=== PATIENT | male | born 1955 | race Caucasian/White ===

== ENCOUNTER 2018-05-10 13:04 | Outpatient (CLI) | payer OTHER, SELFPAY | END 2018-05-10 13:24 | PROVIDERS: PCP Internal Medicine; Visit Provider Orthopaedic Surgery | DX: G56.01 Carpal tunnel syndrome, right upper limb (principal); Z01.818 Encounter for other preprocedural examination ==

== ENCOUNTER 2018-05-18 11:14 | Day surgery (SDC) | payer OTHER, SELFPAY ==
[2018-05-10 13:27] VITALS: BP 138/85; PULSE 66; RESP 17; TEMP 36.7; O2SAT 93
--- NOTE | 2018-05-10 17:09 | HPE_ITS ---
Date of service: 05/10/18 Time of Service: 14:39 Assessment and Plan (1) Carpal tunnel syndrome on both sides: Current visit: Yes Status: Acute ECTR of right wrist anatomy permitting to be followed approximately 2 weeks later by left wrist ECTR. The anatomy operative procedure typical postop course and possible complications are reviewed in detail with Chuck during his preop visit all questions are answered. History of Present Illness Chief Complaint: hand numbness Narrative: Chuck relates a long history numbering at least 5-6 years of right greater than left numbness in the median nerve distribution affecting his thumb , index, long and half of his ring finger definitely sparing his little finger. 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 He has noted decreased dexterity having trouble buttoning his work shirts to the point where he has to have his help button the cuff . He is right-hand dominant. He has a daughter who is a physical therapist and she helped initially make the diagnosis. Pertinent Surgical Information Denies previous medical history of: stroke, TIA, VT, use of sublingual nitroglycerin, GERD, seizures, diabetes, thyroid disease, sleep apnea, liver disease, hepatitis, hematologic disorders Denies previous complications from surgery or anesthesic agents with respect to high fever, prolonged vomiting and difficulty waking up Review of Systems Review of Systems All systems reviewed & are unremarkable except as noted in HPI and below Constitutional Denies fever(s) and Reports headache(s) ENT Reports headache(s) and Reports sore throat Cardiovascular Denies chest pain, Denies chest pain with activity, Denies palpitations and Denies dyspnea on exertion Respiratory Denies dyspnea on exertion and Denies wheezing Gastrointestinal Denies abdominal pain, Denies melena, Denies hematochezia, Denies nausea and Denies vomiting Genitourinary Denies dysuria and Denies urinary frequency Comments: has chronic microscopic hematuria Musculoskeletal Reports as per HPI Neurologic Reports headache(s) Psychiatric Denies anxiety and Denies depression Endocrine Denies palpitations Comments: Denies any unplanned weight changes Allergic/Immunologic Denies wheezing PFSH Medical History Hypertension (Chronic) Social History Smoking/Tobacco Use Status: Former Tobacco Use alcohol intake: never Surgical History History of inguinal hernia repair (Resolved) Hx of tonsillectomy (Resolved) Hx of total hip arthroplasty (Inactive) Meds Home Medications Medication Instructions Recorded Confirmed Type ibuprofen [Advil] 800 mg PO PRN PRN 03/10/16 05/10/18 History aspirin [Aspir 81] 81 mg PO DAILY tab-cap 05/04/17 05/10/18 History losartan 100 mg tablet 160 mg PO DAILY 05/04/18 05/10/18 History Allergies Allergy/AdvReac Type Severity Reaction Status Date / Time No Known Drug Allergies Allergy Verified 05/10/18 13:25 Exam Const General: cooperative HENMT Throat: posterior oropharynx normal Eyes General: appearance normal, both eyes and all related structures Conjunctivae: conjunctivae normal Sclera: sclerae normal Neck Neck: no JVD Carotids: normal carotid upstroke and no bruits Resp Effort & Inspection: normal respiratory effort and able to speak in complete sentences Auscultation: clear to auscultation bilaterally, no rales, no rhonchi and no wheezes Cardio Rate: regular rate Heart Sounds: S1 normal, S2 normal and no murmurs Bruits: no abdominal aortic bruits Pulses: normal peripheral pulses Other: No pulsatile mass noted with palpation over the abdominal aorta GI Palpation: soft and no hepatosplenomegaly Auscultation: normal bowel sounds General: No CVA tenderness Extrem General: no pedal edema Other: Bilateral hands show no evidence of any thenar atrophy. He has numbness to light touch sensation in the median nerve innervated digits on both his hands. 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 Tinel's testing is positive bilaterally experiencing dysesthesia in his long finger. Median nerve compression testing also cause dysesthesia in his index and long finger bilaterally. Phalen's testing is especially positive on the left side. Results Last Vital Signs Temp 36.7 C 05/10/18 13:27 Pulse 66 05/10/18 13:27 Resp 17 05/10/18 13:27 BP 138/85 05/10/18 13:27 Pulse Ox 93 L 05/10/18 13:27
[2018-05-18 11:40] VITALS: BP 123/79; PULSE 70; RESP 18; TEMP 36.7; O2SAT 94
[2018-05-18] MEDS: Normal Saline Flush 10 ML SYR IV (12:13)
[2018-05-18] MEDS: Lactated Ringers 1,000 ML 80 ML IV (12:13)
--- NOTE | 2018-05-18 12:57 | W.PM.DSUDISC ---
Discharge Plan Disposition Patient Disposition: HOME Condition: Good Discharge Details Reason For Visit: (R) CTS Attending Provider: Bhavesh Roland Primary Care Provider: Megha Puckett Home Meds and New Rx's Prescriptions: New hydrocodone-acetaminophen 5-325 mg tablet 1 tab PO Q6H PRN (Reason: pain) Qty: 7 RF: 0 Continue losartan 100 mg tablet 160 mg PO DAILY RF: 0 aspirin [Aspir-81] 81 MG tablet,delayed release (DR/EC) 81 mg PO DAILY RF: 0 ibuprofen [Advil Liqui-Gel] 200 MG capsule 800 mg PO PRN PRNRF: 0 Discharge Instructions Additional Instructions: Elevate R hand above heart level as much as possible overnite. Wiggle fingers 10 times/hour when awake to prevent swelling. Your fingers R hand may stay numb for 24 hours due to nerve block I put in to decrease post-op pain. Remove splint AND dressings in 48 hours and begin to move R wrist. May shower or bathe and get incision wet after you remove the dressings. Leave incision uncovered when it is dry and sealed. Use R hand as much as your discomfort allows. Follow up in 's office in 2 weeks. Referrals: Bhavesh Roland MD [ [facility] STAFF PHYSICIAN] - (f/u in 2 weeks.) Equipment/Supplies: Splint Activity:: Activity as Tolerated Remove Dressings/Wound Care:: 48 hours Shower/Bathe:: 48 hours Diet:: As Tolerated Discharge Orders Discharge Orders: Discharge Order (Routine); Ordered 05/18/18 Ordered By: Bhavesh Roland DS: Diagnosis Discharge Diagnosis (1) Carpal tunnel syndrome on both sides: Start date: 05/18/18 Start time: 12:58 Status: Acute
[2018-05-18 13:27] VITALS: BP 120/75; PULSE 57; RESP 20; TEMP 36.5; O2SAT 93
--- NOTE | 2018-05-18 20:39 | ROE_ITS ---
DATE OF PROCEDURE: May 18, 2018 PREOPERATIVE DIAGNOSIS: Carpal tunnel syndrome, right. POSTOPERATIVE DIAGNOSIS: Carpal tunnel syndrome, right. PROCEDURE: Endoscopic carpal tunnel release, right. SURGEON: Bhavesh Roland M.D. ANESTHESIA: IV regional. INDICATIONS: This is a 62-year-old white male with a longstanding history of carpal tunnel syndrome bilaterally. His right is more affected. He also is a right dominant individual. Because of failur e of conservative treatment to control his symptoms surgery was recommended. The patient wished to u nder the endoscopic technique of carpal tunnel release. The risks and complications of the procedure were explained to the patient in detail preoperatively. PROCEDURE: The patient was taken to the Operating Room on 05/18/18. He was placed supine on the ope rating table and an IV regional anesthetic was administered to the right upper extremity. Once good anesthesia was obtained, the right hand, wrist, and forearm were prepped and draped free in the usual sterile fashion. A transverse incision was made in line with the proximal flexion crease of the wri st. The incision began at the flexor carpi radialis tendon to the flexor carpi ulnaris tendon. The incision was carried down to the fascia and the subcutaneous veins were cauterized. There was a palm manuel longus tendon that was retracted radially and then a distally-based fascial flap was created to gain access to this carpal tunnel. A synovial reflector was then used to free up any soft tissue att achments to the undersurface of the volar carpal ligament. The Ron endoscope blade device was then inserted into the carpal canal. Care was taken to position the endoscope against the hook of the ham ate. The endoscope was advanced until the distal edge of the volar carpal ligament was clearly visua lized. At this point the trigger was depressed, elevating the blade, and then the elevated blade was brought out proximally through the incision, transecting the volar carpal ligament. Littler scissor s were then used to complete a subcutaneous fasciotomy proximal from the incision for a distance of a bout 2 inches. The wound was irrigated with Betadine and saline solution. The wound margins were infiltrated with 0 .5% Marcaine with epinephrine solution, and a median nerve block was performed with 0.5% Marcaine wit h epinephrine solution. The skin edges were approximated with horizontal mattress sutures of #4-0 ny yuli suture material. The wound was dressed with Xeroform gauze, sterile gauze 4x4s, wrapped with a K erlix bandage, and then wrapped with a 3-inch Flavio bandage. He was placed in a commercial cock-up wri st splint. The patient's IV regional anesthesia was reversed without complications. Blood loss was minimal. He was discharged to the Recovery Room in good condition. The patient was discharged home from the Day Surgery Unit when fully recovered from his IV regional a nesthesia. He was given instructions to try to elevate his right hand above heart level as much as p ossible overnight tonight. He is encouraged to wiggle his fingers 10 times an hour while awake. He is advised that the fingers in his right hand may be numb for 24 hours due to the nerve block I put i n to decrease postoperative pain. He may remove his dressings and splint and begin to move his wrist after 48 hours. He may shower or bathe and get his incision wet after 48 hours. He is to leave the incision uncovered when it is dry and sealed. I encouraged him to use his right hand as much as dis comfort allows. He is given a prescription for pain of hydrocodone/APAP 5 mg/325 mg, 1 tablet every 6 hours as needed for pain not relieved by Tylenol or ibuprofen. He will follow up in Dr. Roland's o ffice in two weeks.
== END 2018-05-18 13:54 | disposition home or self-care (01) ==
PROVIDERS: PCP Internal Medicine; Visit Provider Orthopaedic Surgery
PROC: 01N54ZZ Release Median Nerve, Percutaneous Endoscopic Approach (ICD-10-PCS; CPT 29848; principal; 2018-05-18 13:00)
DX: G56.01 Carpal tunnel syndrome, right upper limb (principal)
CPT/HCPCS: 29848; J2250; L3908

== ENCOUNTER 2018-06-22 11:13 | Day surgery (SDC) | payer OTHER, SELFPAY ==
[2018-06-22 11:42] VITALS: BP 136/87; PULSE 67; RESP 16; TEMP 36.7; O2SAT 96
[2018-06-22] MEDS: Lactated Ringers 1,000 ML 80 ML IV (12:10)
--- NOTE | 2018-06-22 13:36 | W.PM.DSUDISC ---
Discharge Plan Disposition Patient Disposition: HOME Condition: Good Discharge Details Reason For Visit: L ECTR Attending Provider: Bhavesh Roland Primary Care Provider: Megha Puckett Home Meds and New Rx's Prescriptions: New hydrocodone-acetaminophen 5-325 mg tablet 1 tab PO Q6H PRN (Reason: pain) Qty: 7 RF: 0 Continued losartan 100 mg tablet 160 mg PO DAILY RF: 0 aspirin [Aspir-81] 81 MG tablet,delayed release (DR/EC) 81 mg PO DAILY RF: 0 ibuprofen [Advil Liqui-Gel] 200 MG capsule 800 mg PO PRN PRNRF: 0 Discharge Instructions Additional Instructions: Elevate L hand above heart level as much as possible overnite tonite. Wiggle fingers L hand 10 times/hour when awake to decrease pain and swelling. Remove dressings AND splint after 48 hours and begin to move L wrist. May use L hand as much as your discomfort allows. After you remove dressings, may shower or bathe and get incision wet. Leave incision uncovered when it is dry and sealed. Take hydrocodone as prescribed only for pain not relieved by ibuprofen. Follow up in 's office in 2 weeks. Your fingers L hand may stay numb for 24 hours due to nerve block I put in to decrease post-op pain. Referrals: Bhavesh Roland MD [ [facility] STAFF PHYSICIAN] - (f/u in 2 weeks.) Equipment/Supplies: Splint Activity:: Activity as Tolerated Remove Dressings/Wound Care:: 48 hours Shower/Bathe:: 48 hours Diet:: As Tolerated Discharge Orders Discharge Orders: Discharge Order (Routine); Ordered 06/22/18 Ordered By: Bhavesh Roland DS: Diagnosis Discharge Diagnosis (1) Carpal tunnel syndrome on both sides: Status: Acute
[2018-06-22 14:08] VITALS: BP 148/80; PULSE 64; RESP 16; TEMP 36.5; O2SAT 97
--- NOTE | 2018-06-22 15:57 | ROE_ITS ---
DATE OF PROCEDURE: June 22, 2018 PREOPERATIVE DIAGNOSIS: Carpal tunnel syndrome, left. POSTOPERATIVE DIAGNOSIS: Carpal tunnel syndrome, left. PROCEDURE: Endoscopic carpal tunnel release, left. SURGEON: Bhavesh Roland M.D. ANESTHESIA: IV regional, Dario Herman CRNA INDICATIONS: This is a 62-year-old white male with bilateral carpal tunnel syndrome of many years' d uration. He recently underwent a successful endoscopic carpal tunnel release on the right a month ag o. He is pleased with his result and wishes to undergo the same procedure on the left to alleviate p ain and numbness in the median nerve distribution of this left hand. The risks and complications of the procedure have been explained to the patient in detail preoperatively. PROCEDURE: The patient was taken to the Operating Room on 06/22/18 and placed supine on the operatin g table. An IV regional anesthetic was administered to the left upper extremity. Once good anesthes ia was obtained, the left hand, wrist, and forearm were prepped and draped free in the usual sterile fashion. An incision was made in line with the proximal flexion crease, beginning at the flexor carpi radialis tendon and extending to the flexor carpi ulnaris tendon. The incision was carried down to the fasci a. Subcutaneous veins were cauterized. A distally-based fascial flap was created to gain access to the carpal canal. A synovial reflector was then used to free up any soft tissue attachments to the u ndersurface of the volar carpal ligament. A series of obturators were then inserted to make room for the endoscope. The Ron endoscope blade device was then inserted in the carpal canal and care was taken to position the endoscope against the hook of the hamate. The endoscope was advanced until the distal edge of th e volar carpal ligament was clearly seen. Once it was seen, the trigger was depressed, elevating the blade, and the blade was kept elevated as it was withdrawn out through the skin incision, transectin g the volar carpal ligament. A limited subcutaneous fasciotomy was then performed proximal to the incision using Littler scissors. A median nerve block was performed with 0.5% Marcaine with epinephrine solution. The wound margins w ere infiltrated with 0.5% Marcaine with epinephrine solution. The wound was irrigated with saline so lution and then the skin edges were approximated with two horizontal mattress sutures of #4-0 nylon s uture material. The wound was dressed with Xeroform gauze, sterile gauze 4x4s, and wrapped with a Ke rlix bandage, followed by wrapping with an Flavio bandage. A commercial cock-up wrist splint was then a pplied. The patient's IV regional anesthesia was reversed without complications. He was discharged to the Day Surgery Unit in good condition. The patient was discharged home from the Day Surgery Unit when fully recovered from his IV regional a nesthesia. He was given instructions to elevate his left hand above heart level as much as possible overnight tonight. He is encouraged to wiggle his fingers 10 times an hour while awake to prevent sw elling and pain. He is to remove his splint and dressings and begin to move his left wrist in [address] After he removes his dressings, he may shower or bathe and get his incision wet. He is to leave the incision uncovered when it is dry and sealed. He will take hydrocodone with APAP 5 mg/325 mg, 1 tablet p.o. q.6h. p.r.n. for pain that is not relieved by ibuprofen. He may use his left hand as mu ch as discomfort allows. He will follow up in Dr. Roland's office in two weeks.
== END 2018-06-22 14:26 | disposition home or self-care (01) ==
PROVIDERS: PCP Internal Medicine; Visit Provider Orthopaedic Surgery
PROC: 01N54ZZ Release Median Nerve, Percutaneous Endoscopic Approach (ICD-10-PCS; CPT 29848; principal; 2018-06-22 13:00)
DX: G56.02 Carpal tunnel syndrome, left upper limb (principal)
CPT/HCPCS: 29848; J0690; J2250; L3908

== ENCOUNTER 2019-05-15 07:26 | Day surgery (SDC) | payer OTHER, SELFPAY ==
--- NOTE | 2019-05-15 07:00 | W.COLOREPORT ---
Date of service: 05/15/19 Time of Service: : Colonoscopy Report Date of procedure: 05/15/19 Pre-op diagnosis general: Colon Cancer Screening and Family history Post-op diagnosis procedure note: other (Diverticulosis and rectal polyp) Procedure: Colonoscopy with polypectomy by cold forceps Surgeon: Stephanie Farris Anesthesia proc note operative: other (General/ ASA 2/Alexus Roman, GENNARO) Estimated blood loss (mL): 3 Pathology: other (Rectal polyp) Complications: None Disposition: same day Indications: Mr. Bhatt is a pleasant 63 year old male seen in the office for a screening colonoscopy. His last Colonoscopy in 2008 was normal. he does have a family hitsory of colon cnacer in his mother who was 60 years old when she was diagnosed. Risks, benefits and complications have been reviewed. Complications include but are not limited to bleeding, pain, perforation, missed small lesion/polyp, sore throat, aspiration and adverse reaction to the medications. Questions were entertained and answered to their satisfaction and they wished to proceed. No guarantees were given or implied. Prep: Miralax/Dulcolax Procedure Start Time: : Procedure End Time: :52 Retraction Time: 23 minutes Findings: One sessile polyp at 15 cm about 10 mm in size Procedure Description: After informed consent was obtained the patient was taken to the procedure room and placed in a left decubitous position. Monitors were applied and a time out was done. The patients name, date of , procedure, allergies to medications and metal in their body was reviewed. The patient was then sedated. Once sedated and comfortable a rectal exam was done. External exam was normal. Internal exam revealed a normal sphincter tone and no palpable masses. I was unable to feel the prostate. The scope was then introduced and retro-flexed. No internal hemorrhoids were identified. The scope was then advanced to the cecum without difficulty. The TI and appendiceal orifice were identified. The prep was adequate. The scope was then slowly retracted over 23 minutes back into the rectum. Polyps were removed with cold forceps in the rectum at 15 cm. There was mild sigmoid diverticulosis noted as well. The scope was removed and the patient was woken up and taken back to Same day surgery in stable condition. The patient tolerated the procedure well and there were no immediate complications. Follow up: The patient should follow up in 5 years unless they develop changes in bowel habits or other new gastrointestinal complaints.
--- NOTE | 2019-05-15 07:00 | W.PM.DSUDISC ---
Discharge Plan Disposition Patient Disposition: HOME Condition: Good Discharge Details Reason For Visit: Colon Cancer Screening Attending Provider: Stephanie Farris Primary Care Provider: Megha Puckett Home Meds and New Rx's Prescriptions: Continued losartan 100 mg tablet 160 mg PO DAILY RF: 0 aspirin [Aspir-81] 81 MG tablet,delayed release (DR/EC) 81 mg PO DAILY RF: 0 ibuprofen [Advil Liqui-Gel] 200 MG capsule 800 mg PO PRN PRNRF: 0 Discontinued polyethylene glycol 3350 17 gram/dose powder 238 g PO ONCE Qty: 238 RF: 0 bisacodyl [Dulcolax (bisacodyl)] 5 mg tablet,delayed release (DR/EC) 5 mg PO ONCE Qty: 4 RF: 0 Discharge Instructions Instructions: Colonoscopy (DC), Colorectal Polyps (DC), Diverticulosis (DC) Additional Instructions: Findings: Mild Diverticulosis Rectal polyp Follow up: 3-5 years Please call if you develop: fevers >101.5 Nausea or Vomiting Abdominal pain that is not transient DAY SURGERY UNIT POST ENDOSCOPY INSTRUCTIONS 1. Because there will be medication in your system for the next 24 hours, you may feel a little sleepy. Your coordination will be affected. Therefore: a. Do not drive or operate dangerous equipment for 24 hours. b. Do not drink alcohol beverages for 24 hours (not even beer). c. Plan to go home and rest for the day. 2. Generally there are no restrictions on your activity after a day or so has gone by, but you may feel a bit fatigued for a few days. 3 After you arrive home you may have a light meal and return to a normal diet as you can tolerate it without feeling sick to your stomach. 4. After surgery, you may feel pain or discomfort. This should be only transient, but if it persists please contact your doctor. 5. If there are any questions regarding the findings of your procedure, please feel free to contact your doctor. 6. If you are unable to contact your doctor with a problem, contact the hospital at [phone]. 7. Continue all your regular medications unless directed otherwise. I understand the above instructions and have no questions. Signature of Patient or Responsible Adult Escort Date/Time Name of Responsible Adult Escort Signature of Nurse Date/Time Activity:: Activity as Tolerated Diet:: High Fiber Diet Discharge Orders Discharge Orders: Discharge Order (Routine); Ordered 05/15/19 Ordered By: Stephanie Farris DS: Diagnosis Discharge Diagnosis (1) History of colonoscopy: Status: Chronic (2) Diverticulosis: Status: Acute
[2019-05-15 07:43] VITALS: BP 129/75; PULSE 56; RESP 18; TEMP 36.3; O2SAT 96
[2019-05-15] MEDS: Lactated Ringers 1,000 ML 80 ML IV (08:05)
--- NOTE | 2019-05-15 08:30 | BOWEL_PTH ---
PATIENT: Chuck Bhatt LOC: [facility] U#:[id number] AGE/SX: 63/M ROOM: RE05/15/[address]: Stephanie Farris MD : 1955 BED: DIS: 05/15/2019 SPEC #: [id number] RECD: 05/15/19 12:33 STATUS: MASHA REQ #: [id number] MARIELA: 05/15/19 08:[address]: Stephanie Farris DEPT: Surgical Specimen RECD BY: Faustina Catherine ENTERED: 05/15/19 12:33 SP TYPE: Bowel OTHR DR: Megha Puckett Tissues: 1 - BIOPSY BOWEL Procedures: GROSS AND MICRO LEVEL 4 Comments: [id number]
[2019-05-15 09:35] VITALS: BP 102/64; PULSE 54; RESP 18; TEMP 36.1; O2SAT 94
== END 2019-05-15 09:55 | disposition home or self-care (01) ==
PROVIDERS: PCP Internal Medicine; Visit Provider Surgery
PROC: 0DJD8ZZ Inspection of Lower Intestinal Tract, Via Natural or Artificial Opening Endoscopic (ICD-10-PCS; CPT 45378; principal; 2019-05-15 08:45)
DX: Z12.11 Encounter for screening for malignant neoplasm of colon (principal); Z80.0 Family history of malignant neoplasm of digestive organs; D12.8 Benign neoplasm of rectum; I10 Essential (primary) hypertension
CPT/HCPCS: 45380; 88305

== ENCOUNTER 2021-02-06 11:04 | Outpatient (CLI) | payer OTHER, SELFPAY ==
--- NOTE | 2021-02-06 10:00 | DI.RAD_ITS ---
Exam(s) XR HIP RT COMPLETE AP PELVIS EXAM: XR HIP RT COMPLETE AP PELVIS CLINICAL HISTORY: RIGHT HIP PAIN. TECHNIQUE: 2D digital imaging was performed. FINDINGS: Left hip prosthesis appears stable. With respect of the right hip, there has been progression of degenerative change with joint space tyrel rowing in superior aspect of the joint and small marginal osteophyte at the femoral head level. IMPRESSION: DATA REPOSITORY: RADIATION DOSE DELIVERED:
== END 2021-02-06 11:05 | disposition home or self-care (01) ==
LOC: DIORS 11:04
PROVIDERS: PCP Internal Medicine; Referring Provider Internal Medicine; Visit Provider Student in an Organized Health Care Education/Training Program
DX: M16.11 Unilateral primary osteoarthritis, right hip (principal); Z96.642 Presence of left artificial hip joint
CPT/HCPCS: 73502

== ENCOUNTER 2021-04-07 10:29 | Outpatient (CLI) | payer OTHER, SELFPAY ==
--- NOTE | 2021-04-07 09:45 | DI.RAD_ITS ---
Exam(s) XR PELVIS AP EXAM: XR PELVIS AP INDICATION: ESTEFANI planning. COMPARISON: CR XR HIP RT COMPLETE AP PELVIS from 02/06/2021 TECHNIQUE: 2D digital imaging was performed. FINDINGS: There has been no change in the left total hip prosthesis. There are stable advanced degenerative ch anges of the right hip with joint space narrowing greatest superiorly. There is some flattening of t he femoral head as well as periarticular spurring. DATA REPOSITORY: RADIATION DOSE DELIVERED:
== END 2021-04-07 10:30 | disposition home or self-care (01) ==
LOC: DIORS 10:29
PROVIDERS: PCP Internal Medicine; Referring Provider Internal Medicine; Visit Provider Physician Assistant
DX: M25.551 Pain in right hip (principal); M16.11 Unilateral primary osteoarthritis, right hip; Z96.642 Presence of left artificial hip joint
CPT/HCPCS: 72170

== ENCOUNTER 2021-04-14 01:54 | Outpatient (CLI) | payer OTHER, SELFPAY ==
[2021-04-14 09:02] LABS: HCT 42.5 % (40.0-50.0); HGB 13.9 g/dL (13.5-17.5); MCH 30.4 pg (27.0-33.0); MCHC 32.7 % (32.0-36.0); MPV 10.9 fL (8.0-11.0); Platelet Count 184 10^3/uL (130-400); RBC 4.57 10^6/uL (4.36-5.78); RDW 13.1 % (11.8-14.1); RDW-SD 44.4 fL; WBC 5.64 10^3/uL (4.4-10.8)
[2021-04-14 10:01] LABS: Anion Gap 9.8 mmol/L (3-11); BUN 18 mg/dL (7-18); CO2 28.2 mmol/L (21.0-32.0); CREATININE 1.1 mg/dL (0.70-1.30); Calcium 8.9 mg/dL (8.5-10.1); Chloride 105 mmol/L (98-107); Glucose 96 mg/dL (74-106); Potassium 3.9 mmol/L (3.5-5.1); Sodium 143 mmol/L (136-145)
== END 2021-04-14 01:55 | disposition home or self-care (01) ==
LOC: LBO 01:54
PROVIDERS: PCP Internal Medicine; Visit Provider Student in an Organized Health Care Education/Training Program
DX: M25.551 Pain in right hip (principal); M16.11 Unilateral primary osteoarthritis, right hip; Z01.818 Encounter for other preprocedural examination; Z01.812 Encounter for preprocedural laboratory examination
CPT/HCPCS: 36415; 80048; 85027; 86850; 86900; 86901

== ENCOUNTER 2021-04-14 01:55 | Outpatient (CLI) | payer OTHER, SELFPAY ==
[2021-04-14 11:26] LABS: Source Nasal/Nares
[2021-04-14 18:07] LABS: COVID-19 PCR Negative (Negative)
== END 2021-04-14 01:56 | disposition home or self-care (01) ==
LOC: LBO 01:55
PROVIDERS: PCP Internal Medicine; Visit Provider Student in an Organized Health Care Education/Training Program
DX: Z20.822 Contact with and (suspected) exposure to COVID-19 (principal); Z01.818 Encounter for other preprocedural examination
CPT/HCPCS: 87635

== ENCOUNTER 2021-04-15 08:46 | Day surgery (SDC) | payer OTHER, SELFPAY ==
--- NOTE | 2021-04-15 07:43 | W.PM.DS.N ---
Documented by User: Megha Do 04/15/21 10:01 DS: Diagnosis Discharge Diagnosis (1) Degenerative joint disease of right hip: Status: Acute Discharge Plan Disposition Patient Disposition: HOME Condition: Good Discharge Details Reason For Visit: Right hip DJD Attending Provider: Andrea Plummer Primary Care Provider: Megha Puckett Home Meds and New Rx's Prescriptions: New celecoxib [Celebrex] 200 mg capsule 200 mg PO BID Qty: 30 RF: 0 aspirin 81 mg tablet,delayed release (DR/EC) 81 mg PO BID 30 Days Qty: 60 RF: 0 acetaminophen 500 mg tablet 500 mg PO Q6H PRN (Reason: pain) Qty: 60 RF: 2 pantoprazole 40 mg tablet,delayed release (DR/EC) 40 mg PO DAILY 30 Days Qty: 30 RF: 0 oxycodone 5 mg tablet 5 mg PO Q6H PRN (Reason: severe post-operative pain) Qty: 12 RF: 0 docusate sodium [Colace] 100 mg capsule 100 mg PO BID Qty: 30 RF: 0 Continued losartan 100 mg tablet 160 mg PO DAILY RF: 0 Discontinued ibuprofen [Advil Liqui-Gel] 200 MG capsule 800 mg PO PRN PRNRF: 0 No Action ibuprofen 200 mg Capsule 800 mg PO Q6H PRNRF: 0 Discharge Instructions Additional Instructions: Total Hip Discharge Instructions Activity: The most important activity is to walk. You should try to take short walks a few times a day. You have no restrictions on movement or positioning, but do not try to force what you do. You will find some stiffness and weakness with hip flexion (lifting your knee). Do not try to strengthen this too early, continue to practice walking and stairs and this will come. - Outpatient physical therapy can be helpful to help return you to a normal gait and improve your flexibility and strength. This can start around 2 weeks. For some patients, it?s not necessary. Usually this is determined at the time of discharge or at the first post-operative visit. - You should wear the DENZEL hose on both legs for 2 weeks. Dressing: Keep the surgical dressing in place for at least one week. After the first week it may be removed and replace with light gauze and tape or nothing. It may get wet after 3 days but avoid soaking the dressing. If it gets wet, just lightly pat dry. It is important to always keep some gauze between skin folds, especially when you are sitting. Spend some time with the wound exposed when you are lying flat as the incision does wrinkle onto itself. Medications: - You should take Tylenol and an anti-inflammatory Celebrex as your primary pain control medications. If the Celebrex is too expensive or not covered, please call the office for another alternative (Advil/Ibuprofen or Naproxen/Aleve). - You have been prescribed a stronger pain medication Oxycodone for breakthrough pain, take as needed as prescribed. - You have also been prescribed a stomach acid reduction agent Pantoprozole to help reduce stomach acid and reflux. - You will be taking Aspirin 81mg twice a day for DVT prevention unless instructed otherwise. - If you have constipation you should take Colace (which has been prescribed) or Miralax (which you may purchase [id number]). It takes most people 3-4 days to have a bowel movement. Follow-up: 2 weeks If you have any acute concerns or questions, please do not hesitate to contact the office at [phone]. You may contact Dr. Plummer with any questions after hours through the hospital at [phone] or on his cell phone at [phone]. Stand Alone Forms: Anesthesia Discharge Inst., Anes.Nerve Block Instructions Referrals: Andrea Plummer MD [ [facility] STAFF PHYSICIAN] - Equipment/Supplies: Walker Activity:: Activity as Tolerated Remove Dressings/Wound Care:: Do Not Remove Shower/Bathe:: Cover Diet:: As Tolerated Discharge Orders Discharge Orders: Discharge Order (Routine); Ordered 04/15/21 Ordered By: Andrea Plummer DS: Data Vitals/I&O Vitals and I&O: Intake & Output 04/14/21 04/14/21 04/15/21 11:59 23:59 11:59 Weight 123.377 kg REPLACED BY [facility] Medical History Acid reflux Colorectal polyps Degenerative joint disease of right hip Diverticulosis Hypertension Surgical History History of carpal tunnel release bilat History of colonoscopy (~11/11/19) 2009-normal History of inguinal hernia repair Hx of tonsillectomy Hx of total hip arthroplasty Left - posterior approach Dr. Roland DOS: 03/16/2016 Family History Father , in mid-sixties of NSAID induced GI bleed. Alcohol abuse Hypertension Coronary artery disease Mother , unspecified cancer Diabetes Colon cancer RHA (rheumatoid arthritis) Social History Smoking/Tobacco Use Status: Former Tobacco Use Quit Date: 05/05/85 Smoking risk assessment performed?: Yes Alcohol Intake: never Drug use: Never Substance use type: does not use Do you feel safe at home: Yes Do you feel safe in your relationship?: Yes Documented by User: Andrea Plummer MD 04/15/21 16:06 Date of service: 04/15/21 Time of Service: 16:06 Discharge Plan Disposition Patient Disposition: HOME Condition: Good Discharge Details Reason For Visit: Right hip DJD Attending Provider: Andrea Plummer Primary Care Provider: Megha Puckett Home Meds and New Rx's Prescriptions: New celecoxib [Celebrex] 200 mg capsule 200 mg PO BID Qty: 30 RF: 0 aspirin 81 mg tablet,delayed release (DR/EC) 81 mg PO BID 30 Days Qty: 60 RF: 0 acetaminophen 500 mg tablet 500 mg PO Q6H PRN (Reason: pain) Qty: 60 RF: 2 pantoprazole 40 mg tablet,delayed release (DR/EC) 40 mg PO DAILY 30 Days Qty: 30 RF: 0 oxycodone 5 mg tablet 5 mg PO Q6H PRN (Reason: severe post-operative pain) Qty: 12 RF: 0 docusate sodium [Colace] 100 mg capsule 100 mg PO BID Qty: 30 RF: 0 Continued losartan 100 mg tablet 160 mg PO DAILY RF: 0 Discontinued ibuprofen [Advil Liqui-Gel] 200 MG capsule 800 mg PO PRN PRNRF: 0 No Action ibuprofen 200 mg Capsule 800 mg PO Q6H PRNRF: 0 Discharge Instructions Additional Instructions: Total Hip Discharge Instructions Activity: The most important activity is to walk. You should try to take short walks a few times a day. You have no restrictions on movement or positioning, but do not try to force what you do. You will find some stiffness and weakness with hip flexion (lifting your knee). Do not try to strengthen this too early, continue to practice walking and stairs and this will come. - Outpatient physical therapy can be helpful to help return you to a normal gait and improve your flexibility and strength. This can start around 2 weeks. For some patients, it?s not necessary. Usually this is determined at the time of discharge or at the first post-operative visit. - You should wear the DENZEL hose on both legs for 2 weeks. Dressing: Keep the surgical dressing in place for at least one week. After the first week it may be removed and replace with light gauze and tape or nothing. It may get wet after 3 days but avoid soaking the dressing. If it gets wet, just lightly pat dry. It is important to always keep some gauze between skin folds, especially when you are sitting. Spend some time with the wound exposed when you are lying flat as the incision does wrinkle onto itself. Medications: - You should take Tylenol and an anti-inflammatory Celebrex as your primary pain control medications. If the Celebrex is too expensive or not covered, please call the office for another alternative (Advil/Ibuprofen or Naproxen/Aleve). - You have been prescribed a stronger pain medication Oxycodone for breakthrough pain, take as needed as prescribed. - You have also been prescribed a stomach acid reduction agent Pantoprozole to help reduce stomach acid and reflux. - You will be taking Aspirin 81mg twice a day for DVT prevention unless instructed otherwise. - If you have constipation you should take Colace (which has been prescribed) or Miralax (which you may purchase [id number]). It takes most people 3-4 days to have a bowel movement. Follow-up: 2 weeks If you have any acute concerns or questions, please do not hesitate to contact the office at [phone]. You may contact Dr. Plummer with any questions after hours through the hospital at [phone] or on his cell phone at [phone]. Stand Alone Forms: Anesthesia Discharge Inst., Anes.Nerve Block Instructions Referrals: Andrea Plummer MD [ [facility] STAFF PHYSICIAN] - Equipment/Supplies: Walker Activity:: Activity as Tolerated Remove Dressings/Wound Care:: Do Not Remove Shower/Bathe:: Cover Diet:: As Tolerated Discharge Orders Discharge Orders: Discharge Order (Routine); Ordered 04/15/21 Ordered By: Andrea Plummer DS: Summary Time Spent with Patient providing and/or coordinating discharge services: Less than 30 minutes Status at Discharge Functional status at discharge: uses cane/walker Overall status at discharge: patient is progressing back to baseline Mental Status: mental status grossly normal Speech and Movement: speech and movement normal Mood: congruent mood Affect: normal affect Exam Psych Mental Status: mental status grossly normal Speech and Movement: speech and movement normal Mood: congruent mood Affect: normal affect REPLACED BY [facility] Medical History Acid reflux Colorectal polyps Degenerative joint disease of right hip Diverticulosis Hypertension Surgical History History of carpal tunnel release bilat History of colonoscopy (~05/15/19) 2008-normal History of inguinal hernia repair Hx of tonsillectomy Hx of total hip arthroplasty Left - posterior approach Dr. Roland DOS: 03/16/2016 Family History Father , in mid-sixties of NSAID induced GI bleed. Alcohol abuse Hypertension Coronary artery disease Mother , unspecified cancer Diabetes Colon cancer RHA (rheumatoid arthritis) Social History Smoking/Tobacco Use Status: Former Tobacco Use Quit Date: 05/05/85 Smoking risk assessment performed?: Yes Alcohol Intake: never Drug use: Never Substance use type: does not use Do you feel safe at home: Yes Do you feel safe in your relationship?: Yes
--- NOTE | 2021-04-15 09:01 | W.ANESPRE ---
General Info Date of Service Date Performed: 04/15/21 Height: 5 ft 11 in Weight: 123.377 kg Body Mass Index (BMI): 37.9 Surgical Procedure: Operation Date: 04/15/21 11:35 Proposed Procedures Side Surgeon p Hip Total Hip Anterior (R) Right Andrea Plummer MD Meds Allergies and Home Medications Allergies Allergy/AdvReac Type Severity Reaction Status Date / Time No Known Drug Allergies Allergy Verified 04/14/21 12:22 Home Medication Medication Instructions Recorded losartan 100 mg tablet 160 mg PO DAILY 05/04/18 acetaminophen 500 mg PO Q6H PRN #60 tab 04/15/21 aspirin 81 mg PO BID 30 Days #60 tab 04/15/21 celecoxib [Celebrex] 200 mg PO BID #30 cap 04/15/21 docusate sodium [Colace] 100 mg PO BID #30 cap 04/15/21 ibuprofen 800 mg PO Q6H PRN 04/15/21 oxycodone 5 mg PO Q6H PRN #12 tab 04/15/21 pantoprazole 40 mg PO DAILY 30 Days #30 tab 04/15/21 Current Visit Medications: Current Medications Generic Name Dose Route Start Last Admin Trade Name Freq PRN Reason Stop Dose Admin Acetaminophen 1,000 mg 04/15/21 06:00 Acetaminophen 500 Mg Tab PO 04/15/21 23:59 PREOP KENNY Acetaminophen 1,000 mg 04/15/21 09:00 Acetaminophen 500 Mg Tab PO TID KENNY Aspirin 81 mg 04/15/21 09:00 Aspirin E.C. 81 Mg Tabec PO BID KENNY Celecoxib 400 mg 04/15/21 06:00 Celecoxib 200 Mg Cap PO 04/15/21 23:59 PREOP KENNY Celecoxib 200 mg 04/15/21 09:00 Celecoxib 200 Mg Cap PO BID KENNY Docusate Sodium 100 mg 04/15/21 07:37 Docusate Sodium 100 Mg Cap PO BID PRN PRN Constipation Hydromorphone HCl 0.5 mg 04/15/21 07:37 Hydromorphone 2 Mg/Ml Vial IVP Q2H PRN PRN Tranexamic Acid 1,000 mg/ 60 mls @ 360 mls/hr 04/15/21 06:00 Sodium Chloride IV 04/15/21 23:59 PREOP KENNY Cefazolin Sodium 3,000 mg/ 100 mls @ 200 mls/hr 04/15/21 06:00 Sodium Chloride IVPB 04/15/21 23:59 PREOP KENNY Ringer's Solution 1,000 mls @ 80 mls/hr 04/15/21 06:00 IV 05/14/21 23:59 INFUSION KENNY Cefazolin Sodium/Dextrose 1 gm in 50 mls @ 100 mls/hr 04/15/21 10:00 Ancef Duplex IVPB 04/16/21 02:29 Q8H KENNY IV Miscellaneous Supplies 1 each 04/15/21 06:00 Iv Access IV 05/14/21 23:59 DIRECTED KENNY Oxycodone HCl 0 mg 04/15/21 07:37 Oxycodone 5 Mg Tab PO Q3H PRN PRN Pain Pantoprazole Sodium 40 mg 04/16/21 08:00 Pantoprazole 40 Mg Tabcr PO DAILY@0730 KENNY Polyethylene Glycol 17 gm 04/15/21 07:37 Polyethylene Glycol 3350 17 Gm Packet PO BID PRN PRN Constipation Sodium Chloride 0 ml 04/15/21 06:00 Normal Saline Flush 10 Ml Syr IV 05/14/21 23:59 PRN PRN Sodium Chloride 0 ml 04/15/21 06:00 Normal Saline 10 Ml Vial IJ 05/14/21 23:59 DIRECTED PRN Sterile Water 0 ml 04/15/21 06:00 Water,Injection,Sterile 10 Ml Vial IJ 05/14/21 23:59 DIRECTED PRN PFSH Active Problems Active Problems: Problem Status Onset Code Degenerative joint disease of right hip M16.11 Diverticulosis K57.90 Colorectal polyps K63.5 History of colonoscopy ~05/15/19 Z98.890 Carpal tunnel syndrome on both sides G56.03 Acid reflux K21.9 Medical History Medical History Acid reflux Colorectal polyps Degenerative joint disease of right hip Diverticulosis Hypertension Surgical History Surgical History History of carpal tunnel release bilat History of colonoscopy (~05/15/19) 2009-normal History of inguinal hernia repair Hx of tonsillectomy Hx of total hip arthroplasty Left - posterior approach Dr. Roland DOS: 03/16/2016 Tobacco Smoking/Tobacco Use Status: Former Tobacco Use Alcohol Alcohol Intake: never Substance Use Substance use: Never Substance use type: does not use Vital Signs and Lab Results Lab Results Blood Type / Crossmatch: Patient ABO/Rh A Positive 04/14/21 08:57 04/14/21 Antibody Screen NEGATIVE 04/14/21 08:57 04/14/21 Complete Blood Count: White Blood Count 5.64 10^3/uL (4.4-10.8) 04/14/21 08:50 04/14/21 Red Blood Count 4.57 10^6/uL (4.36-5.78) 04/14/21 08:50 04/14/21 Hemoglobin 13.9 g/dL (13.5-17.5) 04/14/21 08:50 04/14/21 Hematocrit 42.5 % (40.0-50.0) 04/14/21 08:50 04/14/21 Platelet Count 184 10^3/uL (130-400) 04/14/21 08:50 04/14/21 Complete Metabolic Panel: Sodium Level 143 mmol/L (136-145) 04/14/21 08:57 04/14/21 Potassium Level 3.9 mmol/L (3.5-5.1) 04/14/21 08:57 04/14/21 Chloride Level 105 mmol/L (98-107) 04/14/21 08:57 04/14/21 Carbon Dioxide Level 28.2 mmol/L (21.0-32.0) 04/14/21 08:57 04/14/21 Blood Urea Nitrogen 18 mg/dL (7-18) 04/14/21 08:57 04/14/21 Creatinine 1.1 mg/dL (0.70-1.30) 04/14/21 08:57 04/14/21 Estimated GFR/1.73 m2 >= 60.00 (mL/min/1.73m2) 04/14/21 08:57 04/14/21 Calcium Level 8.9 mg/dL (8.5-10.1) 04/14/21 08:57 04/14/21 Glucose Level 96 mg/dL (74-106) 04/14/21 08:57 04/14/21 Liver Function Panel: No Data to Display Coagulation Panel: No Data to Display Cardiac Panel: No Data to Display Arterial Blood Gas: No Data to Display Venous Blood Gas: No Data to Display Pancreas Panel: No Data to Display Thyroid Panel: No Data to Display Infectious Disease: Coronavirus (COVID-19)(PCR) Negative (Negative) 04/14/21 09:12 04/14/21 Coronavirus 2019 Source Nasal/Nares 04/14/21 09:12 04/14/21 Blood Cultures: No Data to Display Toxicology Panel: No Data to Display Anesthesia Assessment and Plan Anesthesia History Personal History: No History of Anesthesia Complications Family History: No Family History of Anesthesia Complications Exercise Tolerance Exercise Tolerance: Metabolic Equivalents>4 Cardiac & Pulmonary Exam Cardiac Exam: Normal S1/S2 Heart Sounds Pulmonary Exam: Clear Bilateral Breath Sounds Airway Exam Known Difficult Airway: No Mallampati Class: 3 Mouth Opening: Normal (> 3cm) Thyromental Distance: Greater than 3 cm Neck Range of Motion: Limited ROM Neck Circumference: Thick Teeth Condition: Normal Dentition ASA Classification ASA Score: ASA 2 Emergency Case?: No NPO Status NPO Status: NPO Clears >2 hours, Solids >8 hours Anesthesia Plan Resuscitation Status: Full Code Anesthesia Technique: Spinal Anesthesia Airway Planned: Natural Airway Monitors Used: Standard Monitors Preoperative Comments:: 65 yo male for right ESTEFANI. Sig PMHX: HTN (losartan), has GERD that he states is diet controlled. Denies major neuro, cardiac, liver, kidney issues. previous anes: colo with prop only - did well. previous hip with spinal (2.2 mL 0.5% bup) with some transient low MAPs.
[2021-04-15] MEDS: Lactated Ringers 1,000 ML 80 ML IV (09:49)
[2021-04-15 10:13] VITALS: BMI 37.9
--- NOTE | 2021-04-15 10:15 | DI.RAD_ITS ---
Exam(s) XR HIP RT IN OR EXAM: XR HIP RT IN OR CLINICAL HISTORY: RIGHT HIP DJD. TECHNIQUE: 2D digital imaging was performed. COMPARISON: No exams were available for comparison FINDINGS: Fluoroscopy was provided during orthopedic procedure See procedure report for details. Total fluoroscopy time 59.9 seconds. Cumulative dose 11.26 mGy IMPRESSION: DATA REPOSITORY: RADIATION DOSE DELIVERED:
[2021-04-15] MEDS: Celecoxib 200 MG CAP 400 MG PO (10:16)
[2021-04-15] MEDS: Acetaminophen 500 MG TAB 1000 MG PO (10:16)
[2021-04-15] MEDS: ceFAZolin 3,000 MG in Normal Saline 100 ML 200 MG IVPB (11:25)
[2021-04-15] MEDS: Ketorolac 30 MG/ML VIAL (12:28)
[2021-04-15] MEDS: Bupivacaine 0.25% Pres-Free 30 ML VIAL (12:28)
[2021-04-15 13:14] VITALS: BP 92/52; PULSE 68; RESP 23; TEMP 36.7; O2SAT 95
[2021-04-15 13:19] VITALS: BP 107/59; PULSE 64; RESP 13; TEMP 36.7; O2SAT 95
[2021-04-15 13:24] VITALS: BP 96/63; PULSE 60; RESP 18; TEMP 36.7; O2SAT 95
--- NOTE | 2021-04-15 13:29 | W.ANESPOSTOP ---
Postoperative Evaluation Date, Time and Location Date Performed: 04/15/21 Time Performed: 13:29 Patient Location: PACU Vital Signs Most Recent Imported Vital Signs: Most Recent Vital Signs Temp Pulse Resp BP Pulse Ox 36.7 C 64 13 107/59 L 95 04/15/21 13:19 04/15/21 13:19 04/15/21 13:19 04/15/21 13:19 04/15/21 13:19 Pain Score Most Recent Pain Score: Most Recent Pain Score Pain Level 0 04/15/21 13:19 Assessment Mental Status: Awake (Alert & Oriented to Patient Baseline) Airway and Respiratory Function: Patent airway with normal (patient baseline) respiratory exam Cardiovascular Function: Hemodynamically Stable Hydration Status: Adequately Hydrated Nausea & Vomiting: No Nausea or Vomiting Pain: Pt. Denies Any Pain Peripheral Nerve Block: Patient did not receive a nerve block
[2021-04-15 13:38] VITALS: BP 95/52; PULSE 57; RESP 12; TEMP 36.7; O2SAT 97
[2021-04-15 13:46] VITALS: BP 105/62; PULSE 60; RESP 16; TEMP 36.4; O2SAT 94
--- NOTE | 2021-04-15 13:57 | ROE_ITS ---
Date of service: 04/15/21 Time of Service: 13:08 Operative Note Operative Note DATE OF PROCEDURE: 04/15/21 PRE-OP DIAGNOSIS: Right Hip Osteoarthritis POST-OP DIAGNOSIS: same PROCEDURE: Right Anterior Total Hip Arthroplasty with INtraoperative Navigation SURGEON: Andrea Plummer HELICOPTER PILOT INSTRUCTOR: Megha Do ANESTHESIA TYPE: Spinal Refer to Anesthesia Record ESTIMATED BLOOD LOSS: 250 PATHOLOGY: none sent TOURNIQUET TIME: 0 COMPLICATIONS: None Patient was transported to: PACU Patient's condition: stable Implants: 1. Depuy Mesa Acetabular Component, 58mm 2. Depuy Acetabular Liner, [id number] 3. Depuy Corail High Offset Collared Femoral Stem, Size 15 4. Depuy Altrx Ceramic Femoral Head, Size 36+8.5mm Indications: I have seen Chuck in clinic for symptoms of hip arthritis, confirmed with radiographic findings. He has exhausted nonoperative methods and was having significant limitations in daily function and desired better function and less pain. I discussed the technical details of a hip replacement. I explained the risks of the procedure to include, but not limited to, bleeding, infection, pain, stiffness, fracture, damage to nerves and vessels, damage to muscles and tendons, loosening, instability, leg length inequality, need for repeat procedure, blood clot and cardiopulmonary demise. Despite these risks, Chuck elected to proceed. Findings: There was significant signs of arthritis throughout the hip. Procedure Description: Chuck was greeted in the preoperative holding area where the correct side was identified and marked. The consent was reviewed with the patient and signed. The history and physical was updated. All questions were answered. He was taken back to the operating room. A spinal anesthestic was then administered. The feet were wrapped with cast padding and Coban and then placed into the boot liners and then into the boots. Care was taken to protect the skin and make sure the heels were fully down and the boots were stable. The patient was then positioned onto the HANA table. Both legs were held in a neutral position. SCDs were applied. The patient was then slid down onto a peroneal post. Prophylactic antibiotics in the form of Cefazolin were administered. 1g of Tranxemic Acid was given intravenously within 30 minutes of incision. The right leg was then prepped with Chloraprep and draped in a standard fashion. A second prep with Chloraprep was performed prior to placement of a shower-curtain type drape with Iodine impregnated skin protection. A timeout to confirm correct identity, side and site, procedure, allergies, anesthesia, and medical concerns was performed. An obliquely oriented incision was made starting lateral to the ASIS and running distal over the Tensor Fascia Magi (TFL) muscle belly toward the fibular head, approximately 10cm. The skin and soft tissue was dissected sharply, through Boaz?s fascia, and to the fascia of the TFL. With the fascia and superior marvin rder of the IT band identified, the fascia was incised with a new knife just above any perforators from the IT band. The TFL muscle belly was bluntly dissected away from the fascia and moved laterally. The fat between TFL and rectus was identified to ensure the dissection was not within the TFL. Blunt dissection created space between abductors and the capsule and retractor was placed over the lateral femoral neck. The fibers of the rectus femoris tendon were identified and these were freed from the anterior capsule. A second cobra retractor was placed around the medial femoral neck. The TFL was further retracted laterally to show the deep fascia. Careful dissection through this layer identified three main crossing vessels of the lateral femoral circumflex. These were cauterized in multiple locations and then cut without any noticeable bleeding. The TFL was further released bluntly from the deep fascia to expose anterior hip capsule and fat The Leonel orthopaedic retractor was then placed beneath the TFL and against sartorius and medial soft tissues to protect and retract the soft tissues. A T-capsulotomy was then performed starting at the superior lateral acetabulum and moving distally to the intertrochanteric ridge. These capsular flaps were tagged with a No. 1 Ethibond and elevated from within. The capsular flaps were released to the shoulder of the lateral neck and to the lesser trochanter to give excellent visualization of the proximal femur. A neck osteotomy was performed using an oscillating saw based on preoperative templates. This cut started in the shoulder and of the lateral neck and exited medially. The saw was at all times directed medially to avoid injury to the greater trochanter. Gross traction was applied to the leg and the osteotomy o pened. The femoral head was removed with a corkscrew, making sure to protect the TFL on its exit. Traction was released after head removal. This was measured on the back table to determine the starting reamer size. Portions of the rectus obscuring visualization were minimally elevated off the superior acetabulum. An anterior retractor was placed over the anterior wall between capsule and labrum and attached to the Gripper retraction system. The femur was rotated to 90 degrees and medial capsule was fully released until the lesser trochanter was palpable and visible; the femur was returned to 30 degrees. A posterior retractor was placed similarly between capsule and labrum. This provided excellent visualization. The contents of the cotyloid fossa were removed with electrocautery and the labrum was removed with a knife. There was a notable floor osteophyte. There was significant chondromalacia of the superior acetabulum. Acetabular reaming began with a 54mm reamer. This first reaming was directed anterior to posterior and medial to get down to the true floor. This was inspected and reamed until the true floor was reached. The anterior retractor was then released and entry and exit was provided by traction on the capsular flaps. I then reamed sequentially up to a 58mm reamer where good fit was obtained. The larger reamers were oriented based on anatomical reference of the anterior and lateral arellano to ensure proper abduction and anteversion. Positioning and size was confirmed with the fluoroscopy. A 58mm Depuy Mesa acetabular component was selected. The acetabulum was reamed around the periphery with the selected acetabular size to prevent a rim fit. The deep tissues were irrigated. The acetabular component was then impacted in a position of about 40-45 degrees of abduction and 15-20 degrees of anteversion, using the patient?s anatomy as the ultimate landmark. Fluoroscopy was used to confirm this. There was excellent nurse paralegal of the acetabular component and the inserting handle was removed. The acetabular liner, Depuy [id number] polyethylene liner, was inserted and lined up with the tines of the acetabular component. There was no soft tissue interposition. The liner was then impacted into position and confirmed to be well-seated. A portion of the malachi-articular cocktail was then injected around the acetabulum into the capsule and periosteum. This cocktail consisted of 50cc of 0.25% Bupivicaine and 20cc of Exparel and 30mg of Ketorolac. The leg was rotated to 120 degrees. Any remaining medial capsule was released until the lesser trochanter was easily palpable. A retractor was placed medially. The lateral capsule was further released into the shoulder to allow access to the greater trochanter. A Khan retractor was placed over the greater trochanter which allowed the trochanter to flip in front of the capsule for excellent exposure. The leg was brought down into maximal extension and 20 degrees of adduction while ensuring there was no impingement on the acetabulum. Any remnant capsule within the trochanter was released. Piriformis and obturator externis were identified and protected. There was excellent access to the proximal femur. The lateral neck remnant was removed with a rongeur. A blunt canal probe was used to identify the canal and trajectory for later broaching. A box osteotome initiated the broach course. A small curved rasp and a curved curette were used to work laterally. Broaching then began with a size 8 Corail broach. This was inserted manually around the trochanter and into the canal before mallet blows. The broach was seated to the neck cut level based on the neck cut and the preoperative template. Sequential broaching was continued with the [employer] pneumatic broaching device until a tight fit was obtained with good rotational control of the femur. A trial Coxa Vara neck was inserted along with a +5 trial head. The leg was brought out of extension and adduction and then reduced with traction and internal rotation. The leg was stable anteriorly in a position of 30 degrees of extension and 90 degrees of external rotation. Fluoroscopy was used to ensure there was no fracture and the stem was seated well. Leg lengths were checked with an AP pelvis and pelvic reference points. [employer] navigation system was used to confirm appropriate positioning and leg length and offset. This demonstrated that the leg lengths were undercorrected and the offset was just short. Switching to high offset neck with a +8.5 head would correct that. Once content with the desired offset and leg lengths, the leg was brought back into extension, external rotation and adduction. The periosteum and surrounding tissue was injected with remaining portion of the malachi-articular cocktail. The proximal femur was irrigated as well as the deep tissues. The Depuy Corail High Offset collared stem, size 15, was then manually inserted into the proximal femur making sure to control rotation. It was then malleted into position with light blows, giving breaks to allow bone expansion and decrease risk of fracture. The selected Depuy Altrx Ceramic Head, size 36+8.5mm, was then placed onto the clean and dry trunnion and secured with impaction onto the tapered fit. The leg was brought back out of extension and adduction and reduced with traction and internal rotation. Stability was confirmed with no shuck at 90 degrees of external rotation and 30 degrees of extension. No impingement through range of motion arc. Final x-ray images were obtained with fluoroscopy to confirm adequate positioning and no intraoperative fracture. The deep tissues were thoroughly irrigated with Irrisept chlorhexadine solution. The second dose of TXA 1g was administered intravenously. The capsule was then reapproximated with the previously placed Ethibond sutures. The TFL fascia was finally closed with a No. 2 Stratafix, barbed suture. Deep tissues were then reapproximated with 0 Vicryl and a running 2-0 Vicryl. The skin was closed with a running 4-0 Monocryl in a subcuticular fashion. There was some redundancy of the skin, likely from stretch during the case which was secured with steri-stips after skin glue. A Mepilex silver dressing was applied. At the end of the case, all counts were correct. Chuck was transferred to the hospital bed without difficulty and suffering no apparent complication. Chuck has a good prognosis. Physical therapy will start today and without restrictions, weight-bearing as tolerated. Aspirin 81mg BID will be used for DVT prophylaxis.
[2021-04-15 14:14] VITALS: BP 120/82; PULSE 59; RESP 16; TEMP 36.4; O2SAT 95
--- NOTE | 2021-04-15 15:02 | PT.INIE ---
Date of service: 04/15/21 Time of Service: 15:02 PT Notes Visit Reasons: Right hip DJD Physical Therapy Day Surgery Initial Evaluation Date: 04/17/2021 Referring Doctor: SANDEEP Ordonez PT Orders: PT CONSULT: S/P Ortho Surgery Precautions: WBAT on R LE with AD. Patient Profile/Admitting Diagnosis: Patient is a 65-year old male with unilateral primary osteoarthritis of the R hip and is status post L anterior total hip arthroplasty on postoperative day 0. PMHX: Medical History Acid reflux Colorectal polyps Degenerative joint disease of right hip Diverticulosis Hypertension Surgical History History of carpal tunnel release bilat History of colonoscopy (~05/15/19) 2008-normal History of inguinal hernia repair Hx of tonsillectomy Hx of total hip arthroplasty Left - posterior approach Dr. Roland DOS: 03/16/2016 Social History/Home Situation: Lives with in a private home with 7 steps to enter with rails on B sides. 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 1 fall in the past 12 months. Equipment Owned/DME: [facility] Subjective: Agreeable to PT consult. Reports stinging pain in the hip and the lateral thigh which did not limit today's mobility assessment. Objective: General Observation: Mepilex Ag over surgical incision. TEDS on B legs. Mental Status: Alert and oriented x 4 Pain: 2-3/10 pain in the right lateral hip ROM: Right Lower Extremity: Hip flexion WFL. Hip abduction WFL. Knee flexion WFL. Ankle dorsiflexion WFL. Ankle plantarflexion WFL. Left Lower Extremity: Hip flexion WFL. Hip abduction WFL. Knee flexion WFL. Ankle dorsiflexion WFL. Ankle plantarflexion WFL. Strength: Right Lower Extremity: Hip flexors 4/5. Hip abductors 4/5. Knee flexors 5/5. Knee extensors 4/5. Ankle dorsiflexors 5/5. Ankle plantarflexors 5/5. Left Lower Extremity:Hip flexors 5/5. Hip abductors 5/5. Knee flexors 5/5. Knee extensors 5/5. Ankle dorsiflexors 5/5. Ankle plantarflexors 5/5. Sensation: Intact as to pain and light pressure in B LE Bed Mobility/Transfers: Supine to sit supervision Sit to stand contact guard assist Stand to sit supervision Bed to chair supervision Gait: Instructed with correct gait pattern and safe technique with level surface ambulation using the FWW with step through gait pattern. Reports mild stinging in the right lateral hip. denies headache, chest pain, and dizziness throughout. Stairs: Negotiated up and down 6 x 4-inch steps and 4 x 6-inch steps while holding onto B rails with step-to gait pattern requiring stand by assist. Balance: Static Sitting: Normal Dynamic Sitting: Normal Static Standing: Fair Dynamic Standing: Fair Special Tests: Mobility Limitations Standardized Measure [facility] 6 clicks Basic Mobility Inpatient Short Form: Raw Score: 24 CMS Score: 0% deficit Informed Consent/Education: Patient instructed in purpose of PT consult. Packet containing ESTEFANI exercise protocol has been given to patient. Education and training on initial set of exercises that can be done at home have been completed with patient. Assessment: Patient requires the use of a FWW for all transfer and ambulation task performance to reduce fall risk and maximize independence. Patient presents with clinical signs and symptoms consistent with current/admitting diagnoses that have resulted to mobility limitations, gait instability, generalized weakness, and impairment of motor control as demonstrated by the following impairment level findings: 1. Decreased strength to R hip major muscle groups 2. Impaired standing balance Impairments are contributing to the following functional limitations: 1. Inability to safely ambulate without assistive device 2. Increase completion time for mobility ADL performance 3. Increased fall risk Patient is assessed as a 37162 moderate complexity based on the following: History: 65-year-old male with impairment level findings, functional limitations, and past medical history as indicated above Examination: Demonstrable impairment in strength, balance, and mobility level with underlying impairments and functional limitations as documented above Presentation: Evolving Decision Makin moderate complexity Goals: N/A. PT evaluation and 1-2 treatment sessions only for functional mobility training using recommended AD and for HEP instruction. Plan of Care/Treatment Plan: N/A. PT evaluation and 1-2 treatment session only for functional mobility training using recommended AD and for HEP instruction. DISCHARGE RECOMMENDATIONS: Home when medically cleared by orthopedic surgeon. OP PT services to facilitate return to community ambulation and vocational activities. TREATMENT CODE/TIME: 67289 x 29 minutes beginning at 15:02 PM. Thank you for the opportunity to participate in the care of this patient. Gisel Matthews PT, DPT, CLT [facility] [place], [place]
--- NOTE | 2021-04-15 16:31 | W.ANESPOSTOP ---
Postoperative Evaluation Date, Time and Location Date Performed: 04/15/21 Time Performed: 16:10 Patient Location: Day Surgery Unit Vital Signs Most Recent Imported Vital Signs: Most Recent Vital Signs Temp Pulse Resp BP Pulse Ox 36.4 C L 59 L 16 120/82 95 04/15/21 14:14 04/15/21 14:14 04/15/21 14:14 04/15/21 14:14 04/15/21 14:14 Most Recent Vital Signs Temp Pulse Resp BP Pulse Ox 36.7 C 64 13 107/59 L 95 04/15/21 13:19 04/15/21 13:19 04/15/21 13:19 04/15/21 13:19 04/15/21 13:19 Pain Score Most Recent Pain Score: Most Recent Pain Score Pain Level 4 04/15/21 14:14 Assessment Mental Status: Awake (Alert & Oriented to Patient Baseline) Airway and Respiratory Function: Patent airway with normal (patient baseline) respiratory exam Cardiovascular Function: Hemodynamically Stable Hydration Status: Adequately Hydrated Nausea & Vomiting: No Nausea or Vomiting Pain: Pt. Denies Any Pain Peripheral Nerve Block: Patient did not receive a nerve block
== END 2021-04-15 16:15 | disposition home or self-care (01) ==
LOC: SUR 08:47
PROVIDERS: PCP Internal Medicine; Visit Provider Student in an Organized Health Care Education/Training Program
PROC: (CPT 27130; principal; 2021-04-15 11:15)
DX: M16.11 Unilateral primary osteoarthritis, right hip (principal); Z96.642 Presence of left artificial hip joint; K21.9 Gastro-esophageal reflux disease without esophagitis; I10 Essential (primary) hypertension
CPT/HCPCS: 27130; 20985; C1776; 97162; 97530; 73501; J0690; J1100; J1885; J2001; J2250; J2405

== ENCOUNTER 2021-04-28 10:44 | Outpatient (CLI) | payer OTHER, SELFPAY ==
--- NOTE | 2021-04-28 10:30 | DI.RAD_ITS ---
Exam(s) XR HIP RT COMPLETE AP PELVIS EXAM: XR HIP RT COMPLETE AP PELVIS CLINICAL HISTORY: 1ST POST OP R ESTEFANI. TECHNIQUE: 2D digital imaging was performed. COMPARISON: CR XR PELVIS AP from 04/07/2021 FINDINGS: There has been interval placement of a right hip prosthesis. Components are in satisfactory position alignment. Left hip prosthesis is also again noted. IMPRESSION: DATA REPOSITORY: RADIATION DOSE DELIVERED:
== END 2021-04-28 10:45 | disposition home or self-care (01) ==
LOC: DIORS 10:45
PROVIDERS: PCP Internal Medicine; Referring Provider Internal Medicine; Visit Provider Physician Assistant
DX: Z96.641 Presence of right artificial hip joint (principal); Z47.1 Aftercare following joint replacement surgery
CPT/HCPCS: 73502

== ENCOUNTER 2022-04-20 08:33 | Outpatient (CLI) | payer OTHER, SELFPAY ==
--- NOTE | 2022-04-20 08:15 | DI.RAD_ITS ---
Exam(s) XR HIP RT AP LAT ONLY EXAM: XR HIP RT AP LAT ONLY CLINICAL HISTORY: f/u R ESTEFANI. TECHNIQUE: 2D digital imaging was performed. Two images were obtained. AP and lateral views were ob tained. COMPARISON: CR XR HIP RT COMPLETE AP PELVIS from 04/28/2021 FINDINGS: BONES: There are stable post operative changes present. No fracture or dislocation. JOINTS: The orthopedic hardware is in good position. SOFT TISSUE: Normal. IMPRESSION: Stable postoperative changes. DATA REPOSITORY: RADIATION DOSE DELIVERED:
== END 2022-04-20 08:34 | disposition home or self-care (01) ==
LOC: DIORS 08:33
PROVIDERS: PCP Internal Medicine; Referring Provider Internal Medicine; Visit Provider Student in an Organized Health Care Education/Training Program
DX: Z96.641 Presence of right artificial hip joint (principal); Z98.890 Other specified postprocedural states
CPT/HCPCS: 73502